=== PATIENT | female | born 1995 | race American Indian/Alaskan Native ===

== ENCOUNTER 2018-07-11 18:23 | Emergency (ER) | payer MEDICAID ==
--- NOTE | 2018-07-11 18:59 | Emergency Department Report ---
Blank Doc - Documentation Documentation: This is a 22-year-old female that presents with pelvic pain and dizziness. This initial assessment/diagnostic orders/clinical plan/treatment(s) is/are subject to change based on patient's health status, clinical progression and re- assessment by fellow clinical providers in the ED. Further treatment and workup at subsequent clinical providers discretion. Patient/guardians urged not to elope from the ED as their condition may be serious if not clinically assessed and managed. Initial orders include: 1- Patient sent to [facility] for further evaluation and treatment 2- labs 3- UA
[2018-07-11 19:00] VITALS: BP 129/69
[2018-07-11 19:11] LABS: Basophils # (Auto) 0.1 K/mm3 (0.0-0.1); Basophils % (Auto) 0.6 % (0.0-1.8); Eosinophils # (Auto) 0.1 K/mm3 (0.0-0.4); Eosinophils % (Auto) 0.8 % (0.0-4.3); Hematocrit 36.5 % (30.3-42.9); Hemoglobin 12.3 gm/dl (10.1-14.3); Lymphocytes # (Auto) 2.3 K/mm3 (1.2-5.4); Lymphocytes % (Auto) 24.3 % (13.4-35.0); Mean Corpuscular HGB Conc 34 % (30-34); Mean Corpuscular Volume 82 fl (79-97); Monocytes # (Auto) 0.9 K/mm3 (0.0-0.8); Monocytes % (Auto) 9.4 % (0.0-7.3); Platelet Count 279 K/mm3 (140-440); Red Blood Count 4.43 M/mm3 (3.65-5.03); Red Cell Distribution Width 13.4 % (13.2-15.2)
[2018-07-11 19:24] LABS: BUN/Creatinine Ratio 13; Blood Urea Nitrogen 10 mg/dL (7-17); Calcium 8.8 mg/dL (8.4-10.2); Hemolysis Index 4
--- NOTE | 2018-07-11 21:03 | Ultrasound Report ---
PROCEDURE: US OB TRANSVAGINAL TECHNIQUE: Transvesical and endovaginal pelvic sonographic imaging was performed HISTORY: abd pain 22-year-old female, 2, para 0, positive urine test, pelvic pain, LMP 05/21/2018 COMPARISONS: None FINDINGS: Images demonstrate the uterus to measure 8.6 x 5.4 x 5.6 cm. Within the uterus, there is a gestational sac containing a pole. By crown-rump length of 6.1 mm, estimated gestational age is 6 weeks 3 days. A 3 mm yolk sac is identified. heart rate measures 140 bpm. Right ovary measures 2.9 x 1.1 x 3.7 cm. Left ovary measures 1.6 x 1.9 x 1.3 cm. There is minimal free cul-de-sac fluid. IMPRESSION: Single live intrauterine gestation at 6 weeks 3 days with estimated due date of 03/03/2019. Minimal free cul-de-sac fluid. No complications or abnormalities identified.. This document is electronically signed by Tracy Wilde MD., July 11 2018 09:01:31 PM ET
--- NOTE | 2018-07-11 21:05 | Ultrasound Report ---
PROCEDURE: US OB <= 14 WEEKS FETUS TECHNIQUE: Real-time transabdominal sonography of the uterus, placenta, amniotic fluid, adnexa, and fetus was performed with image documentation. Measurements were obtained to determine age/size. M-mode Doppler was used to document heartbeat. ADDITIONAL GESTATION: None. HISTORY: abd pain COMPARISONS: None . FINDINGS: CRL: 6.1 mm, which corresponds to a gestational age of: 6 weeks, 3days. Yolk Sac: Appropriate for gestational age. . Embryonic Cardiac Activity: 140 bpm . Gestational Sac: Size and shape are appropriate for gestational age Amniotic fluid: Appropriate for gestational age. Right Ovary: 2.9 x 1.1 x 3.7 with normal echotexture. Left Ovary: 1.6 x 1.9 x 1.3 cm with normal echotexture . Estimated delivery date: 03/03/2019 . Uterus and adnexa: Normal. IMPRESSION: Single live intrauterine gestation at approximately 6 weeks and 3 days . EDC by US 03/03 . This document is electronically signed by Bro Arciniega MD., July 11 2018 09:03:04 PM ET
--- NOTE | 2018-07-11 21:18 | Emergency Department Report ---
ED Abdominal Pain HPI - General Chief Complaint: Abdominal Pain Stated Complaint: STOAMCH CRAMPS/DIZZY Time Seen by Provider: 07/11/18 18:58 Source: patient Mode of arrival: Ambulatory Limitations: No Limitations - History of Present Illness Initial Comments: Patient is a 22-year-old female who presents for abdominal cramping and intermittent dizziness 1 week last menstrual period 8 weeks ago patient denies nausea vomiting no vaginal discharge is no hematuria no urgency no frequency no dysuria there is no fever chills patient requesting confirmation of a referral to [facility] MD Complaint: abdominal pain Onset/Timin -: month(s) Location: LLQ, RLQ Migration to: no migration Severity scale (0 -10): 3 Quality: cramping Consistency: intermittent Improves With: nothing Worsens With: nothing Associated Symptoms: denies other symptoms - Related Data LMP (females 10-50): 2 months Previous Rx's Medication Instructions Recorded Last Taken Type SILVER sulfADIAZINE 50 GRAM 1 applic TP BID #1 tube 02/07/18 Unknown Rx [Thermazene 50 Gram] Acetaminophen [Tylenol] 650 mg PO QID PRN #30 capsule 07/11/18 Unknown Rx Allergies Allergy/AdvReac Type Severity Reaction Status Date / Time No Known Allergies Allergy Verified 07/11/18 18:25 ED Review of Systems ROS: Stated complaint: STOAMCH CRAMPS/DIZZY Other details as noted in HPI Constitutional: denies: chills, fever Eyes: denies: eye pain, eye discharge, vision change ENT: denies: ear pain, throat pain Respiratory: denies: cough, shortness of breath, wheezing Cardiovascular: denies: chest pain, palpitations Endocrine: no symptoms reported Gastrointestinal: abdominal pain. denies: nausea, vomiting, diarrhea Genitourinary: denies: urgency, dysuria, discharge Musculoskeletal: denies: back pain, joint swelling, arthralgia, myalgia Skin: denies: rash, lesions Neurological: denies: headache, weakness, paresthesias Psychiatric: denies: anxiety, depression Hematological/Lymphatic: denies: easy bleeding, easy bruising ED Past Medical Hx - Past Medical History Previous Medical History?: No - Surgical History Past Surgical History?: No - Social History Smoking Status: Unknown if ever smoked Substance Use Type: None - Medications Home Medications: Home Medications Medication Instructions Recorded Confirmed Last Taken Type SILVER sulfADIAZINE 50 GRAM 1 applic TP BID #1 tube 02/07/18 Unknown Rx [Thermazene 50 Gram] Acetaminophen [Tylenol] 650 mg PO QID PRN #30 capsule 07/11/18 Unknown Rx ED Physical Exam - General Limitations: No Limitations General appearance: alert, in no apparent distress - Head Head exam: Present: atraumatic, normocephalic - Eye Eye exam: Present: normal appearance - ENT ENT exam: Present: mucous membranes moist - Neck Neck exam: Present: normal inspection - Respiratory Respiratory exam: Present: normal lung sounds bilaterally - Cardiovascular Cardiovascular Exam: Present: regular rate, normal heart sounds - GI/Abdominal GI/Abdominal exam: Present: soft, normal bowel sounds. Absent: distended, tenderness, rebound, bruit, hernia - Rectal Rectal exam: Present: deferred - Extremities Exam Extremities exam: Present: normal inspection - Back Exam Back exam: Present: normal inspection, full ROM. Absent: tenderness, CVA tenderness (R), CVA tenderness (L), rash noted - Neurological Exam Neurological exam: Present: alert, oriented X3, CN II-XII intact, normal gait - Psychiatric Psychiatric exam: Present: normal affect, normal mood - Skin Skin exam: Present: warm, dry, intact, normal color. Absent: rash ED Course Vital Signs 07/11/18 18:58 Temperature 98.3 F Pulse Rate 83 Respiratory 16 Rate Blood Pressure 129/69 O2 Sat by Pulse 100 Oximetry ED Medical Decision Making - Lab Data Result diagrams: 07/11/18 19:03 07/11/18 19:03 Labs 07/11/18 07/11/18 07/11/18 19:03 19:03 19:03 WBC 9.6 RBC 4.43 Hgb 12.3 Hct 36.5 MCV 82 MCH 28 MCHC 34 RDW 13.4 Plt Count 279 Lymph % (Auto) 24.3 Christian % (Auto) 9.4 H Eos % (Auto) 0.8 Baso % (Auto) 0.6 Lymph # 2.3 Christian # 0.9 H Eos # 0.1 Baso # 0.1 Seg Neutrophils % 64.9 Seg Neutrophils # 6.2 Sodium 138 Potassium 3.9 Chloride 104.3 Carbon Dioxide 24 Anion Gap 14 BUN 10 Creatinine 0.8 Estimated GFR > 60 BUN/Creatinine Ratio 13 Glucose 88 Calcium 8.8 HCG, Qual Positive HCG, Quant 07/11/18 20:38 WBC RBC Hgb Hct MCV MCH MCHC RDW Plt Count Lymph % (Auto) Christian % (Auto) Eos % (Auto) Baso % (Auto) Lymph # Christian # Eos # Baso # Seg Neutrophils % Seg Neutrophils # Sodium Potassium Chloride Carbon Dioxide Anion Gap BUN Creatinine Estimated GFR BUN/Creatinine Ratio Glucose Calcium HCG, Qual HCG, Quant 37490 H - Radiology Data Radiology results: report reviewed, image reviewed Ordering Physician: KANDY RAMAN NP Date of Service: 07/11/18 Procedure(s): US OB <= 14 weeks fetus Accession Number(s): [id number] cc: KANDY RAMAN NP PROCEDURE: US OB <= 14 WEEKS FETUS TECHNIQUE: Real-time transabdominal sonography of the uterus, placenta, amniotic fluid, adnexa, and fetus was performed with image documentation. Measurements were obtained to determine age/size. M-mode Doppler was used to document heartbeat. ADDITIONAL GESTATION: None. HISTORY: abd pain COMPARISONS: None . FINDINGS: CRL: 6.1 mm, which corresponds to a gestational age of: 6 weeks, 3days. Yolk Sac: Appropriate for gestational age. . Embryonic Cardiac Activity: 140 bpm . Gestational Sac: Size and shape are appropriate for gestational age Amniotic fluid: Appropriate for gestational age. Right Ovary: 2.9 x 1.1 x 3.7 with normal echotexture. Left Ovary: 1.6 x 1.9 x 1.3 cm with normal echotexture . Estimated delivery date: 03/03/2019 . Uterus and adnexa: Normal. IMPRESSION: Single live intrauterine gestation at approximately 6 weeks and 3 days . EDC by 03/03/2019 . This document is electronically signed by Srinivasan Arciniega MD., July 11 2018 09:03:04 PM ET Transcribed By: [facility] [place] Dictated By: SRINIVASAN ARCINIEGA Electronically Authenticated By: SRINIVASAN ARCINIEGA Signed Date/Time: 07/11/182104 DD/ 47 TD/TT: 07/11/182048 - Medical Decision Making Ultrasound OB single IUP 6 weeks 3 days heart rate is 140 bpm patient states pain is resolved there is no dysuria no frequency no hematuria no vaginal discharge CBC is normal plan this is a confirmed patient will follow up with [facility] tomorrow . patient verbalized agreement and understanding of discharge plan patient denies any symptoms at this time and follows this point a confirmed Critical care attestation.: If time is entered above; I have spent that time in minutes in the direct care of this critically ill patient, excluding procedure time. ED Disposition Clinical Impression: Qualifiers: Weeks of gestation: less than 8 weeks Qualified Code(s): Z3A.01 - Less than 8 weeks gestation of Abdominal pain during Qualifiers: Trimester: first trimester Qualified Code(s): O26.891 - Other specified related conditions, first trimester; R10.9 - Unspecified abdominal pain Disposition: TO HOME OR SELFCARE Is pt being admited?: No Does the pt Need Aspirin: No Condition: Stable Instructions: Abdominal Pain (ED), (ED) Prescriptions: Acetaminophen [Tylenol] 650 mg PO QID PRN #30 capsule PRN Reason: Pain , Severe (7-10) Referrals: DUGLAS HALE MD [Staff Physician] - 3-5 Days Forms: Work/School Release Form(ED)
== END 2018-07-11 21:25 | disposition home or self-care (01) ==
LOC: ED 18:23
DX: O26.891 Other specified pregnancy related conditions, first trimester (principal); Z3A.01 Less than 8 weeks gestation of pregnancy
CPT/HCPCS: 36415; 76801; 76817; 80048; 84702; 84703; 85025

== ENCOUNTER 2019-02-08 22:02 | Outpatient (CLI) | payer MEDICAID ==
[2019-02-09] MEDS ORDERED: LACTATED RINGERS 1,000 ML IV ONE (00:18)
--- NOTE | 2019-02-09 00:39 | Ultrasound Report ---
ULTRASOUND OBSTETRIC LIMITED ULTRASOUND BIOPHYSICAL PROFILE INDICATION / CLINICAL INFORMATION: BPP. Clinical Gestational Age (GA): 36 weeks 5 days COMPARISON: None available. FINDINGS: BREATHING MOVEMENT = 2 GROSS BODY MOVEMENT = 2 TONE = 2 QUALITATIVE AMNIOTIC FLUID VOLUME = 2 TOTAL BIOPHYSICAL SCORE = 8/8 HEART RATE (beats per minute): 142 AMNIOTIC FLUID INDEX (cm) = 7.9 (normal = 7-24 cm) PRESENTATION: Cephalic. ADDITIONAL FINDINGS: Placenta is located anteriorly. IMPRESSION: 1. Biophysical Score = 8/8 2. Single viable IUP. Signer Name: Yaima Ledesma MD Signed: 02/09/2019 12:34 AM Workstation Name: [id number]
[2019-02-09 00:40] VITALS: BP 112/58
[2019-02-09 01:03] LABS: Bacteria,Urine 1+ /HPF (Negative); Bilirubin,Urine NEG (Negative); Blood,Urine NEG (Negative); Color,Urine Yellow (Yellow); Protein,Urine <15 mg/dL mg/dL (Negative); Urobilinogen,Urine < 2.0 mg/dL (<2.0)
--- NOTE | 2019-02-09 02:16 | Progress Note ---
Assessment and Plan A: at 36 weeks, 5 days gestation. False labor. Dehydration. Category 1 heart rate tracing; BPP 8/8. P: IV hydration. Discussed with patient importance of drinking 6-8 cups of water per day and avoiding sodas, coffee, and tea. Advised patient to perform daily movement counting. Signs of labor discussed with patient. Warning signs of late discussed with patient. States she will follow up at [facility] office on Monday02/11/19; patient declined recommended follow up US. Subjective - Subjective Date of service: 02/09/19 Principal diagnosis: at 36 5/7 weeks gestation; back pain, abdominal pain Interval history: 23 year old presents to L&D triage complaining of lower back pain and abdominal pain beginning several hours prior to arrival. She states she also had several contractions per hour while at home but states contractions have resolved when she arrived here. Denies LOF or VB. Patient reports active movement. Patient denies falls or abdominal trauma. No flank pain, dysuria, or urinary frequency. Not drinking much water; drinking mostly sodas. Patient reports: contractions, no loss of fluid, no vaginal bleeding Objective - Vital Signs Vital Signs: Vital Signs - 12hr 02/08/19 22:28 Temperature 98.2 F Pulse Rate 94 H Respiratory 16 Rate Blood Pressure 112/58 [Left] O2 Sat by Pulse 98 Oximetry - Exam Abdomen: Present: normal appearance, soft. Absent: distention, tenderness, guarding, rigidity Uterus: Present: normal, fundal height above umbilicus. Absent: tenderness FHR: category 1 FHR comments: BPP 8/8. BETO 7.9 cm. Uterine Contraction Monitor Mode: External Cervical Dilatation: 0 Cervical Effacement Percentage: 0 station: high Uterine Contraction Pattern: Absent Extremities: normal - Labs Labs: Laboratory Results - last 24 hr 02/08/19 22:30 Urine Color Yellow Urine Turbidity Slightly-cloudy Urine pH 6.0 Ur Specific [place] 1.009 Urine Protein <15 mg/dl Urine Glucose (UA) Neg Urine Ketones Tr Urine Blood Neg Urine Nitrite Neg Urine Bilirubin Neg Urine Urobilinogen < 2.0 Ur Leukocyte Esterase Neg Urine WBC (Auto) 2.0 Urine RBC (Auto) 3.0 U Epithel Cells (Auto) 12.0 Urine Bacteria (Auto) 1+
== END 2019-02-09 02:15 | disposition home or self-care (01) ==
LOC: TRG 22:02
PROVIDERS: ATTEND Obstetrics & Gynecology
DX: O62.9 Abnormality of forces of labor, unspecified (principal); O26.893 Other specified pregnancy related conditions, third trimester; E86.0 Dehydration; M54.5 Low back pain; Z3A.36 36 weeks gestation of pregnancy
CPT/HCPCS: 59025; 76815; 76819; 81001; 96360; J7120

== ENCOUNTER 2019-02-10 09:17 | Outpatient (CLI) | payer MEDICAID ==
--- NOTE | 2019-02-10 11:38 | Ultrasound Report ---
ULTRASOUND OBSTETRIC LIMITED ULTRASOUND BIOPHYSICAL PROFILE INDICATION / CLINICAL INFORMATION: BETO; decreased movement. COMPARISON: None available. FINDINGS: BREATHING MOVEMENT = 2 GROSS BODY MOVEMENT = 2 TONE = 2 QUALITATIVE AMNIOTIC FLUID VOLUME = 2 TOTAL BIOPHYSICAL SCORE = 8/8 AMNIOTIC FLUID INDEX (cm) = 15.3 PRESENTATION: Cephalic. HEART RATE (beats per minute): 137 ADDITIONAL FINDINGS: Cervical length 2.7 cm. Placenta anterior without previa. IMPRESSION: 1. Biophysical Score = 8/8 Signer Name: Uche Barrera MD Signed: 02/10/2019 11:34 AM Workstation Name: [id number]
[2019-02-10 13:46] VITALS: BP 114/58
--- NOTE | 2019-02-11 05:26 | Event Note ---
Date: 02/10/19 Triage Note for 02/10/10 23 year old presents to triage complaining of decreased movement. She denies leaking of fluid, vaginal bleeding, or labor. Category 1 heart rate tracing. BPP 8/8. BETO 15.3 cm. Active movement was palpated and patient states she feels active movement during her visit here today. Reinforced daily movement counting, signs of labor, and warning signs. Follow up at [facility] this week.
== END 2019-02-10 13:56 | disposition home or self-care (01) ==
LOC: TRG 09:17
PROVIDERS: ATTEND Obstetrics & Gynecology
DX: O47.1 False labor at or after 37 completed weeks of gestation (principal); O36.8130 Decreased fetal movements, third trimester, not applicable or unspecified; Z3A.37 37 weeks gestation of pregnancy
CPT/HCPCS: 76815; 76819